=== PATIENT | male | born 1980 | race Caucasian/White ===

== ENCOUNTER 2017-11-12 10:14 | Emergency (ER) | payer SELFPAY ==
[2017-11-12 10:29] VITALS: BP 115/76; PULSE 89; TEMP 97.3; BMI 20.7
[2017-11-12] MEDS ORDERED: TETANUS AND DIPHTHERIA TOXOID 0.5 ML DISP.SYRIN IM ONE (12:40)
--- NOTE | 2017-11-12 12:52 | PDOC ---
History of Present Illness - General Chief Complaint: Ingrown toenail Stated Complaint: INGROWN TOENAIL Time Seen by Provider: 11/12/17 12:46 History Source: Patient - History of Present Illness Initial Comments: 11/12/17 12:47 For evaluation of sore right great toe. States does excision of his toenails frequently, but was unable to perform that type of procedure due to pain. Patient states suffers from frequent ingrown toenails and also plantar warts. Severity: Yes: mild, moderate Location: reports: face Past History - Travel Traveled outside of the country in the last 30 days: No - Past Medical History Allergies/Adverse Reactions: Allergies Allergy/AdvReac Type Severity Reaction Status Date / Time No Known Allergies Allergy Verified 11/12/17 10:26 Home Medications: Ambulatory Orders NK [No Known Home Medication] 10/01/13 COPD: No Other medical history: DENIES - Suicide/Smoking/Psychosocial Hx Smoking History: Current every day smoker Have you smoked in the past 12 months: Yes Number of Cigarettes Smoked Daily: 10 Information on smoking cessation initiated: No Hx Alcohol Use: Yes (daily) Substance Use Type: Alcohol Review of Systems - Review of Systems Able to Perform ROS?: Yes Is the patient limited [place] proficient: Yes Constitutional: Yes: Symptoms Reported, See HPI. No: Fever, Malaise Musculoskeletal: Yes: Symptoms Reported Integumentary: Yes: Symptoms Reported, See HPI, Other (right great toe, multiple plantar wart lesions noted to bilateral plantar aspects of feet.) All Other Systems: Reviewed and Negative *Physical Exam - Vital Signs Last Vital Signs Temp Pulse Resp BP Pulse Ox 97.3 F L 89 19 115/76 97 11/12/17 10:26 11/12/17 10:26 11/12/17 10:26 11/12/17 10:26 11/12/17 10:26 - Physical Exam General Appearance: Yes: Nourished, Appropriately Dressed, Apparent Distress HEENT: positive: Normal ENT Inspection, TMs Normal, Pharynx Normal Neck: positive: Supple. negative: Tender, Lymphadenopathy (R), Lymphadenopathy (L) Respiratory/Chest: positive: Lungs Clear, Normal Breath Sounds Extremity: positive: Normal Capillary Refill, Normal Range of Motion Integumentary: positive: Normal Color, Rash (multiple discrete lesions to plantar aspect of bilateral feet, consistent with plantar warts), Other ( discolored or deformed/misshapened right great toenail with whitish lifting consistent with onychomycosis. Has sharp clipped edge on the lateral aspect of right great toenail causing inflammation. 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 We'll refer to podiatry for definitive treatment for ingrown nails and plantar wart growth. *DC/Admit/Observation/Transfer Diagnosis at time of Disposition: Ingrown toenail - Discharge Dispostion Disposition: HOME Condition at time of disposition: Stable Admit: No - Referrals Referrals: Pedro Rothman MD [Staff Physician] - - Patient Instructions Printed Discharge Instructions: DI for Ingrown Toenail Additional Instructions: Rest, keep hand elevated Avoid heavy lifting or strenuous activity until healed Soak finger every 2-3 hours while awake for the next 2-3 days to keep continue to allow drainage Reapply bacitracin ointment and bulky dressing after each soaking May use ibuprofen or Tylenol for pain relief Followup with private physician in one to 2 days for wound check as needed Return immediately to emergency department or private doctor's for worsening redness, swelling, pain, streaking - Post Discharge Activity Forms/Work/School Notes: Back to Work
[2017-11-12] MEDS ORDERED: DIPHTH,PERTUSS(ACELL),TET 0.5 ML DISP.SYRIN IM ONE (12:54)
== END 2017-11-12 13:00 | disposition home or self-care (01) ==
LOC: JERFT 10:14
PROC: 3E0234Z Introduction of Serum, Toxoid and Vaccine into Muscle, Percutaneous Approach (ICD-10-PCS; principal; 2017-11-12)
DX: L60.0 Ingrowing nail (principal); B07.0 Plantar wart; F17.210 Nicotine dependence, cigarettes, uncomplicated
CPT/HCPCS: 90715; 99281-25

== ENCOUNTER 2018-02-19 12:17 | Emergency (ER) | payer BC, OTHER ==
[2018-02-19 12:25] VITALS: BP 124/88; PULSE 99; TEMP 98.4; BMI 20.7
--- NOTE | 2018-02-19 12:48 | PDOC ---
History of Present Illness - General Chief Complaint: Wound Stated Complaint: BACK PAIN Time Seen by Provider: 02/19/18 12:30 - History of Present Illness Initial Comments: 37-year-old male presents for evaluation of a painful mass on his back which is been there for a number of years. He states it originally started when he fell off a ladder over the last few years it has gotten more painful. It is exacerbated when he sits back on a couch or when pressure is applied. There are no radiation of symptoms. No other associated symptoms 02/19/18 12:43 Past History - Past Medical History Allergies/Adverse Reactions: Allergies Allergy/AdvReac Type Severity Reaction Status Date / Time No Known Allergies Allergy Verified 02/19/18 12:21 Home Medications: Ambulatory Orders NK [No Known Home Medication] 10/01/13 COPD: No - Suicide/Smoking/Psychosocial Hx Smoking History: Current some day smoker Have you smoked in the past 12 months: Yes Number of Cigarettes Smoked Daily: 10 Information on smoking cessation initiated: No Hx Alcohol Use: No Drug/Substance Use Hx: No Substance Use Type: Alcohol Review of Systems - Review of Systems Musculoskeletal: Yes: Back Pain All Other Systems: Reviewed and Negative *Physical Exam - Vital Signs Last Vital Signs Temp Pulse Resp BP Pulse Ox 98.4 F 99 H 20 124/88 98 02/19/18 12:21 02/19/18 12:21 02/19/18 12:21 02/19/18 12:21 02/19/18 12:21 - Physical Exam Comments: There is a tender mass midline about the thoracic spine in the area of T6 or T7. There is normal surrounding skin color and temperature, no fluctuance induration or sensitivity masses firm. He has no sensorimotor deficits in bilateral upper or lower extremities. 02/19/18 12:44 Medical Decision Making - Medical Decision Making This is a cystic structure which may need to be biopsied I will have him follow- up with Gen. surgery for this. 02/19/18 12:45 *DC/Admit/Observation/Transfer Diagnosis at time of Disposition: Cyst - Discharge Dispostion Disposition: HOME Condition at time of disposition: Stable Decision to Admit order: No - Referrals Referrals: Julio César Rodriguez MD [Staff Physician] - - Patient Instructions Additional Instructions: This cystic structure on your back needs to be removed because it is causing pain. The best person to do this is a general surgeon. Return to the emergency room if symptoms worsen or go unresolved prior to follow-up with the general surgeon I recommended for you. It's important to follow-up in 2-3 days. You have no indication of infection today. - Post Discharge Activity
== END 2018-02-19 12:52 | disposition home or self-care (01) ==
LOC: JERFT 12:17
DX: L72.9 Follicular cyst of the skin and subcutaneous tissue, unspecified (principal); F17.210 Nicotine dependence, cigarettes, uncomplicated
CPT/HCPCS: 99281-25

== ENCOUNTER 2020-05-15 09:52 | Emergency (ER) | payer SELFPAY ==
[2020-05-15 09:58] VITALS: BP 122/72; PULSE 74; TEMP 98; BMI 21.5
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
[2020-05-15] MEDS ORDERED: KETOROLAC TROMETHAMINE 60 MG/2 ML VIAL IM ONE (10:49)
[2020-05-15] MEDS ORDERED: KETOROLAC TROMETHAMINE 30 MG/1 ML VIAL ONE (10:53)
== END 2020-05-15 11:23 | disposition home or self-care (01) ==
LOC: JERFT 09:52
PROC: 2W3HX1Z Immobilization of Left Thumb using Splint (ICD-10-PCS; principal; 2020-05-15)
PROC: 3E0233Z Introduction of Anti-inflammatory into Muscle, Percutaneous Approach (ICD-10-PCS; 2020-05-15)
DX: M25.532 Pain in left wrist (principal)
CPT/HCPCS: 73110-TC-LT-FY; 73130-TC-LT-FY; 99284-25

== ENCOUNTER 2022-01-22 10:32 | Emergency (ER) | payer SELFPAY ==
[2022-01-22 10:42] VITALS: BP 103/70; PULSE 91; TEMP 97.8; BMI 25.8
== END 2022-01-22 11:51 | disposition home or self-care (01) ==
LOC: JERFT 10:32
DX: H61.22 Impacted cerumen, left ear (principal)
CPT/HCPCS: 99281-25